=== PATIENT | male | born 1960 | race Caucasian/White ===

== ENCOUNTER → 2019-03-04 | Outpatient (CLI) | payer SELFPAY ==
[2019-03-04 18:44] LABS: RUBELLA IgG QUALITATIVE IMMUNE (IMMUNE)
[2019-03-06 08:20] LABS: MUMPS VIRUS IgG ANTIBODY 21.2 AU/mL (Immune >10.9); RUBEOLA IgG ANTIBODY >300.0 AU/mL (Immune >16.4)
== END ==
LOC: M WUC 13:31
PROVIDERS: ATTEND Physician Assistant
DX: Z11.59 Encounter for screening for other viral diseases (principal)